=== PATIENT | male | born 1945 | race Caucasian/White ===

== ENCOUNTER 2016-11-24 23:57 | Emergency (ER) | payer MEDICARE, OTHER ==
[2016-11-25 00:30] LABS: BASOPHIL 0.4 % (0-2); EOSINOPHIL 2.2 % (0-7); HCT 43.1 % (42.0-52.0); HGB 14.8 g/dl (13.2-18.0); MCHC 34.3 g/dL (32.0-36.0); MCV 96.2 fL (78.0-100.0); MONOCYTE 6.9 % (0-12); MPV 10.4 fL (6.0-9.5); NEUTROPHIL 62.5 % (41-80); PLT 298 K/uL (150-400); RBC 4.48 M/uL (4.70-6.00); RDW 13.5 % (11.5-14.0); WBC 11.4 K/uL (4.0-10.5)
[2016-11-25 00:40] LABS: INR 0.97 (0.9-1.2); PROTHROMBIN TIME 12.5 SECONDS (11.7-14.0)
[2016-11-25 00:51] LABS: CKMB 1.88 ng/mL (0.97-4.94); MYOGLOBIN 44 ng/mL (26-65); PRO-BNP 41 pg/mL (0-125); TROPONIN T < 0.010 ng/mL
[2016-11-25 00:54] LABS: LACTIC ACID 0.2 mmol/L (0.5-2.2)
[2016-11-25 01:07] LABS: ALBUMIN 3.8 g/dL (3.4-4.8); BILIRUBIN - TOTAL 0.3 mg/dL (0.1-1.0); CREATININE 1.1 mg/dL (0.7-1.2); GLOBULIN (CALCULATION) 3.1 g/dL (2.2-4.2); MAGNESIUM 1.39 mg/dL (1.40-2.10); POTASSIUM 4.2 mmol/L (3.5-5.1); TOTAL PROTEIN 6.9 g/dL (6.4-8.3)
[2016-11-25 01:36] LABS: PTT 24.2 SECONDS (23.2-31.4)
== END 2016-11-25 05:00 | disposition home or self-care (01) ==
LOC: FER 23:57
PROVIDERS: Emergency Medicine
DX: L03.116 Cellulitis of left lower limb (principal); R07.9 Chest pain, unspecified; I51.9 Heart disease, unspecified; E11.9 Type 2 diabetes mellitus without complications; J44.9 Chronic obstructive pulmonary disease, unspecified; Z88.0 Allergy status to penicillin
CPT/HCPCS: 36415; 71010; 80048; 80053; 82550; 82553; 83605; 83735; 83874; 83880; 84484; 85025; 85379; 85610; 85730; 87040; 93005